=== PATIENT | female | born 1955 | race Caucasian/White ===

== ENCOUNTER 2021-05-21 04:15 | Day surgery (SDC) | payer OTHER ==
[2021-05-16 16:59] VITALS: BMI 50.1
[2021-05-21] MEDS ORDERED: LIDOCAINE HCL/PF 2% SDV 5ML VIAL ONE (09:57)
[2021-05-21] MEDS ORDERED: GLYCOPYRROLATE 0.2 MG/1 ML VIAL ONE (09:57)
[2021-05-21] MEDS ORDERED: MIDAZOLAM HCL 2 MG/2 ML SINGLE DOSE VIAL ONE (09:57)
[2021-05-21] MEDS ORDERED: PROPOFOL 20 ML ONE (10:22)
[2021-05-21] MEDS ORDERED: ACETAMINOPHEN 500 MG TABLET (FP) PO PRN (10:45)
[2021-05-21] MEDS ORDERED: ONDANSETRON 4 MG/2 ML VIAL IVPUSH PRN (10:45)
[2021-05-21] MEDS ORDERED: oxyCODONE HCL 5 MG TABLET PO PRN (10:45)
[2021-05-21] MEDS ORDERED: LACTATED RINGERS SOLUTION 1,000 ML IV SCH (10:45)
[2021-05-21 11:22] VITALS: TEMP 97.3
[2021-05-21] MEDS ORDERED: ONDANSETRON 4 MG/2 ML VIAL ONE (11:44)
[2021-05-21 12:25] VITALS: BP 121/73; PULSE 88
== END 2021-05-21 12:48 | disposition home or self-care (01) ==
LOC: JASU-SURG 04:15
PROVIDERS: ATTEND Urology
PROC: 0TF3XZZ Fragmentation in Right Kidney Pelvis, External Approach (ICD-10-PCS; principal; 2021-05-21 09:30)
DX: N20.0 Calculus of kidney (principal)
CPT/HCPCS: 82962

== ENCOUNTER 2024-10-22 12:45 | Emergency (ER) | payer OTHER ==
[2024-10-22 12:57] VITALS: BP 141/61; PULSE 92; RESP 18; TEMP 98.3; BMI 45.3
[2024-10-22] MEDS ORDERED: ACETAMINOPHEN 500 MG TABLET (FP) ONE (13:58)
[2024-10-22] MEDS ORDERED: KETOROLAC TROMETHAMINE 15 MG/ML VIAL ONE (13:58)
[2024-10-22] MEDS ORDERED: LIDOCAINE 4% PATCH TP ONE (13:58)
[2024-10-22] MEDS: ACETAMINOPHEN 500 MG TABLET (FP) PO ONE (14:05)
[2024-10-22] MEDS: KETOROLAC TROMETHAMINE 15 MG/ML VIAL IM ONE (14:05)
[2024-10-22] MEDS: LIDOCAINE 4% PATCH TP ONE (14:05)
[2024-10-22] MEDS ORDERED: LIDOCAINE PATCH REMOVAL MC SCH (22:00)
== END 2024-10-22 15:45 | disposition home or self-care (01) ==
LOC: JERFT 12:45
PROC: 3E0233Z Introduction of Anti-inflammatory into Muscle, Percutaneous Approach (ICD-10-PCS; principal; 2024-10-22)
DX: M47.817 Spondylosis without myelopathy or radiculopathy, lumbosacral region (principal); M54.50 Low back pain, unspecified; G89.29 Other chronic pain
CPT/HCPCS: 72100-TC-FY; 99284-25